=== PATIENT | female | born 1990 | race African-American/Black ===

== ENCOUNTER 2024-01-25 09:37 | Outpatient (REF) | payer OTHER, SELFPAY ==
[2024-01-25 12:26] LABS: Estimated Average Glucose 103 mg/dL; Hemoglobin A1c % 5.2 % (<6.0)
[2024-01-25 12:38] LABS: Alanine Aminotransferase 24 U/L (0-31); Albumin Level 4.1 g/dL (3.5-5.0); Alkaline Phosphatase 72 U/L (39-117); Anion Gap 9 (12-20); Aspartate Amino Transferase 22 U/L (5-31); Bilirubin Total 0.4 mg/dL (0.0-1.0); Blood Urea Nitrogen 11 mg/dL (9-16); Calcium 9.7 mg/dL (8.4-10.2); Carbon Dioxide 29 mmol/L (22-29); Chloride 104 mmol/L (96-108); Estimated Glomerular Filt Rate > 60; Glucose Random 85 mg/dL (60-115); Potassium 4.1 mmol/L (3.3-5.1); Sodium 138 mmol/L (135-145); Total Protein 7.6 g/dL (6.5-8.0)
[2024-01-25 12:42] LABS: TSH reflex Free T4 0.93 uIU/mL (0.32-4.0)
[2024-01-27 09:09] LABS: Prolactin 11.4 ng/mL
== END 2024-01-25 09:38 | disposition home or self-care (01) ==
LOC: HO.HHCL 09:37
PROVIDERS: Visit Provider Student in an Organized Health Care Education/Training Program
DX: N64.52 Nipple discharge (principal)
CPT/HCPCS: 36415; 80053; 83036; 84146; 84443

== ENCOUNTER 2024-02-15 14:17 | Outpatient (REF) | payer MEDICAID, SELFPAY ==
--- NOTE | ~2024-02-15 | MR_ITS ---
EXAMINATION: MR BREAST WITHOUT AND WITH CONTRAST, BILATERAL CLINICAL INFORMATION: No acute left nipple discharge. Breast augmentation. COMPARISON: None available. TECHNIQUE: Imaging was performed with a dedicated breast coil. Prior to the administration of contrast, bilateral axial T1 and bilateral axial T2 weighted sequences were obtained. After the uneventful administration of?10 mL of Gadavist, dynamic contrast-enhanced VIBRANT series through the breasts in the axial plane were performed. Subtracted images were performed and reviewed. A delayed sagittal sequence through both breasts was acquired. Additionally, CAD post-processing, including maximum intensity projections, 3-D reconstructions and kinetic analysis, were performed an independent workstation and reviewed by the interpreting radiologist is a portion of this exam. Silicone specific sequences not performed. FINDINGS: The breasts appear to be comprised of scattered fibroglandular elements. The tissue undergoes mild background enhancement. Bilaterally, extensive micrometallic susceptibility artifact in the periareolar region and along the inframammary fold of both breasts and at 6 o'clock suggests bilateral mastopexy in addition to bilateral breast augmentation. Significant metallic artifact is noted associated with the posterior aspect of both implants, likely related to implant valves. Clinical correlation is advised. Recommend PA and lateral chest radiograph to assess implants. LEFT BREAST: There is a subcutaneous oval 5 mm enhancing focus at 6 o'clock (series 100 image 80/111) projecting 3 cm from the nipple. On sagittal reformats this projects immediately under a line of susceptibility which I expect represents postsurgical change from mastopexy. Clinical correlation is advised. Recommend correlation with diagnostic mammography and MR directed diagnostic second look ultrasound. Fat necrosis is favored. There is a 15 mm area of skin thickening and enhancement on the left along the cleavage at 5 o'clock (series 100 image 79). There is associated susceptibility artifact and this is consistent with postoperative change. Suggest correlation with physical examination. The nipple/areolar complex is normal in appearance. No duct ectasia on T2-weighted sequence. There is an intact retropectoral implant. Again, marked susceptibility artifact posterior to the implant is likely due to the valve. Recommend correlation with chest radiography. RIGHT BREAST: No suspicious masslike or non-masslike enhancement. No abnormal skin thickening or nipple retraction. No abnormal architectural distortion. Review of the T2 weighted images demonstrates no fibrocystic changes or dilated ducts. Review of kinetic images reveals no additional findings. There is an intact retropectoral implant. Marked susceptibility artifact posterior to the implant appears related to valve. Recommend correlation with chest radiography. There is no suspicious internal mammary chain or axillary adenopathy. Limited views of the chest and abdomen are unremarkable. MR/MR breast BI wo/w con IMPRESSION: 1. A 5 mm focus of non-mass enhancement on the left at 6 o'clock, 3 cm from the nipple just under the skin. This underlies an area of susceptibility artifact likely from prior mastopexy. Fat necrosis is favored. 2. Bilateral retropectoral implants. Pronounced posterior metallic artifact. ASSESSMENT: LEFT BREAST: BI-RADS Category 4, suspicious finding. RIGHT BREAST: BI-RADS Category 2, benign finding. RECOMMENDATIONS: 1. Bilateral diagnostic mammography with left breast MR directed diagnostic second look ultrasound. 2. PA and lateral chest radiograph. Recommendation given to Maame FERRIS on 02/22/24 @ 8:52am. pt- Beatriz Li
[2024-02-15] MEDS: gadobutroL 10 ML VIAL IVPUSH (15:48)
== END 2024-02-15 14:18 | disposition home or self-care (01) ==
LOC: HO.MRI 14:17
PROVIDERS: PCP Student in an Organized Health Care Education/Training Program; Visit Provider Student in an Organized Health Care Education/Training Program
DX: N64.52 Nipple discharge (principal); N63.24 Unspecified lump in the left breast, lower inner quadrant
CPT/HCPCS: 77049; A9585

== ENCOUNTER 2024-03-07 12:50 | Outpatient (REF) | payer MEDICAID, SELFPAY ==
--- NOTE | ~2024-03-07 | US_ITS ---
EXAMINATION: MM DIAGNOSTIC DIGITAL BREAST TOMOSYNTHESIS, BILATERAL US BREAST LIMITED, LEFT CLINICAL INFORMATION: 33-year-old female, Yellowish left nipple discharge x1 year. Recent breast augmentation/implant surgery November 2022. Patient also complaining palpable focus far left breast medial inferior aspect near sternal wall. Recent MRI examination 02/15/2024, Second Look ultrasound for 2 possible abnormalities (1 representing palpable abnormality) and a 3 mm 6:00 axis left enhancing focus 3 cm from the nipple just underneath the skin, seen on that examination left breast. COMPARISON: Mammography: None. MRI breasts 02/15/2024. TECHNIQUE: Digital mammography is performed in craniocaudal and mediolateral oblique views. Digital breast tomosynthesis is performed in implant-displaced craniocaudal and implant-displaced mediolateral oblique views. Synthesized 2D images are generated from the tomosynthesis. Computer-aided detection (CAD) is performed for this exam. FINDINGS: There are scattered areas of fibroglandular density (ACR BI-RADS breast composition Category b). The implant contours are unremarkable. There are no significant masses, abnormal calcifications, or other abnormalities. The small 3 mm enhancing focus at the 6:00 axis left breast shows no suspicious abnormality on mammography. This is in a region of scarring from breast augmentation, and most likely represents scar tissue. The palpable focus in the far medial inferior left breast near the sternum is too far posteromedial to be imaged on mammography. We will investigate both these regions with ultrasound. ULTRASOUND: CLINICAL INFORMATION: As above. Evaluating palpable focus left breast far posteromedial and inferior, and evaluating small enhancing focus 6:00 axis 3 cm from the nipple, likely scar tissue. COMPARISON: None. Correlation with MRI breasts 01/26/2024. TECHNIQUE: Targeted sonographic evaluation was performed using a high frequency linear transducer. Selected archived documentation. FINDINGS: LEFT BREAST: -There is a mixture of fatty and fibroglandular tissue. No suspicious mass is seen. There is no pathologic acoustic shadowing. There is no ultrasonographic correlate to the 6:00 axis small focus of enhancement. In the region of far posteromedial palpable concern, 8:00 axis along the sternal border, there is an anechoic oval lesions that is slightly taller than wide, mildly irregular margins, good through transmission, with no internal color Doppler flow, measuring 5 x 6 x 5 mm. There is some surrounding echogenic changes to the subcutaneous fat in this region, making this most likely a region of fat necrosis. In addition this is also in the region of scarring, and is likely postsurgical in nature. US/US breast LT limited mamm only IMPRESSION: -There are no findings in either breast suspicious for malignancy. There is no implant abnormality in either breast. -Focus of enhancement on MRI LEFT breast at the 6:00 axis, 3 cm from the nipple most likely correlates to scar tissue in this region. There is no suspicious associated finding on sonography. To be cautious, 3 MONTH FOLLOW-UP left diagnostic mammogram recommended to ensure stability mammographically (standard CC and MLO implant displaced views). -Focus of palpable concern at the sternal border 8:00 axis far posteromedial also lies in a region of scarring, and is most likely a focus of evolving fat necrosis. -To be cautious, 3 MONTH FOLLOW-UP of the 8 o'clock axis abnormality, likely fat necrosis, is recommended with targeted LEFT breast ultrasound to assess for expected evolution. -Findings were discussed with the patient. OVERALL ASSESSMENT: Mammography: BI-RADS 3 - Probably benign finding(s) - 6 month follow-up suggested Ultrasound: BI-RADS 3 - Probably benign finding(s) - 6 month follow-up suggested RECOMMENDATION: 1-3 Months F/U This patient's information was entered into a reminder system with a target due date for their next mammogram.
== END 2024-03-07 12:51 | disposition home or self-care (01) ==
LOC: HO.MAMMO 12:50
PROVIDERS: PCP Student in an Organized Health Care Education/Training Program; Visit Provider Student in an Organized Health Care Education/Training Program
DX: R92.8 Other abnormal and inconclusive findings on diagnostic imaging of breast (principal)
CPT/HCPCS: 76642; 77062; 77066

== ENCOUNTER → 2024-03-07 13:30 | Outpatient (BNV) | payer MEDICAID, SELFPAY | PROVIDERS: PCP Student in an Organized Health Care Education/Training Program; Visit Provider Radiology Diagnostic Radiology | DX: N64.52 Nipple discharge (principal) | CPT/HCPCS: 76642; 77062; 77066 ==

== ENCOUNTER 2024-03-25 10:37 | Outpatient (AMB) | payer MEDICAID, SELFPAY ==
--- NOTE | 2024-03-25 10:46 | A.OFFVIS_ITS ---
Vital Signs 03/25/24 10:48 Height 5 ft 9 in Weight 215 lb BMI 31.7 BP 126/70 Blood Pressure Location Lt brachial Position Sitting Pulse 86 Intake Visit Reasons: Abnormal Breast MRI Intake Note: Patient is seen in office for evaluation and treatment of abnormal breast MRI. Pt c/o: had an MRI done due to a chest lump she could feel, was told it was scar tissue, recently had breast reconstruction in [place] and was told is scar tissue MRI:02/15/24 Voice Systems Engineer Required: No Accompanied by: Other Relationship Allergies latex Allergy (Mild, Verified 03/25/24 11:01) Itching vanilla extract flavor Allergy (Mild, Verified 03/25/24 11:01) Unknown Medication List - Last Reconciled 03/25/24 by Rodney Lubin MD No Known Home Meds HPI Comments Details: 33-year-old female patient presenting for evaluation of a left breast lump and left nipple discharge. Discharge is expressed with pressure on the nipple and seems to come from a prior nipple piercing. Discharge is described as white without blood. She is status post bilateral breast augmentation performed in [facility] in November 2022. She denies any problems with the surgery other than waking up during the procedure. Workup for the discharge with breast MRI revealed intact bilateral breast implants. Two areas of possible fat necrosis were identified in the left breast 1 at the 06:00 o'clock location and a 2nd in the 8 o'clock position. Subsequent mammogram and ultrasound confirmed a low suspicion area which was suspected to be fat necrosis. Repeat ultrasound in 3 months was recommended. She is able to palpate the lesion at the 08:00 o'clock location which is in the medial breast near the breast incision. She denies a family history of breast breast cancer. Menarche was the age of 9. She is 8 para 5. [facility] Surgical History (Updated 03/25/24 @ 11:03 by MARLEN Gonsalez) Hx of breast reconstruction (11/24/22) Hx of abdominoplasty (11/24/22) Social History Alcohol intake: current Patient Tobacco Use Status: Current everyday Tobacco user Female Reproductive History Menstrual Age of Menarche: 9 Date of last menstrual period: 03/07/24 Total pregnancies: 8 Number of Living Children: 5 Review of Systems Const All systems reviewed & are unremarkable except as noted in HPI and below Denies chills, Denies fever(s), Denies headache(s), Denies poor appetite and Denies weakness ENT Denies headache(s) Card Denies chest pain, Denies irregular heart rhythm, Denies palpitations and Denies dyspnea Resp Denies cough, Denies excessive phlegm production and Denies dyspnea GI Denies abdominal pain, Denies bloating, Denies change in bowel habits, Denies constipation, Denies heartburn, Denies diarrhea, Denies nausea and Denies vomiting Denies urinary frequency Musc Denies back pain, Denies muscle weakness and Denies numbness Skin/Breast Denies changing lesions and Denies unusual bruising Neuro Denies headache(s), Denies numbness, Denies paresthesias and Denies weakness Psych Denies anxiety and Denies depression Endo Denies palpitations Jorden/Lymph Denies lymphadenopathy Physical Exam Vital Signs: Last Vital Signs Pulse 86 03/25/24 10:48 BP 126/70 03/25/24 10:48 BMI result Body Mass Index 31.7 Const General: cooperative and no acute distress Nutritional Appearance: well nourished Orientation/consciousness: patient oriented x3 Limitations: no limitations HEENT Head: Yes normocephalic and Yes atraumatic Ears: hearing grossly normal bilaterally Chest Other: Bilateral mammo pexy and augmentation incisions are clean and intact. There are palpable nodules along the incision bilaterally suggestive of underlying sutures. Implant are intact. No evidence of infection. Left breast: No skin change, no nipple retraction, no nipple discharge, nipple piercing without evidence of underlying abscess, palpable mass suggestive of u nderlying scar tissue or fat necrosis, no suspicious palpable mass, no enlarged lymph nodes. Right breast: No skin change, no nipple retraction, no nipple discharge, no palpable mass, no enlarged lymph nodes Resp Effort & Inspection: normal respiratory effort, no audible wheezes, no cough and no respiratory distress Cardio Jugular venous distension: no JVD GI Inspection: Yes normal to inspection Skin Other: Warm, dry, no rash Neuro General: patient oriented x3 Extrem General: Yes no clubbing, cyanosis or edema Assessment & Plan Assessment & Plan (1) Abnormal ultrasound of breast: Code(s): R92.8 - Other abnormal and inconclusive findings on diagnostic imaging of breast Category: Medical Plan 33-year-old female patient with a recent history of nipple discharge from her nipple piercing in the left breast found to have a palpable mass in the 8 o'clock position confirmed by MRI along with a 06:00 o'clock lesion felt to possibly be fat necrosis. This was confirmed on mammogram/ultrasound of 03/07/2024. Examination today revealed no suspicious findings in either breast with well-healed incisions in the bilateral breasts from mammo pexy and breast augmentation. I recommended a follow-up ultrasound in 3 months with follow-up examination after the ultrasound. She expressed understanding and agrees with the plan. The nipple discharge does not appear to be spontaneous and rather is coming from the nipple piercing. No surgical intervention is required for this finding. Orders: Orders US breast LT limited 06/07/24 R92.8 - Other abnormal and inconclusive findings on diagnostic imaging of breast Coding Level of Care Code New Pt Level 4 (51787) Diagnoses Abnormal ultrasound of breast R92.8
[2024-03-25 10:48] VITALS: BP 126/70; PULSE 86; BMI 31.7
== END 2024-03-25 11:01 | disposition home or self-care (01) ==
PROVIDERS: PCP Student in an Organized Health Care Education/Training Program; Referring Provider Student in an Organized Health Care Education/Training Program; Visit Provider Surgery
DX: R92.8 Other abnormal and inconclusive findings on diagnostic imaging of breast (principal)
CPT/HCPCS: 99203

== ENCOUNTER → 2024-03-25 10:37 | Outpatient (BNVA) | payer MEDICAID, SELFPAY | PROVIDERS: PCP Student in an Organized Health Care Education/Training Program; Referring Provider Student in an Organized Health Care Education/Training Program; Visit Provider Surgery | DX: R92.8 Other abnormal and inconclusive findings on diagnostic imaging of breast (principal) | CPT/HCPCS: 99202 ==

== ENCOUNTER 2024-04-11 12:19 | Outpatient (REF) | payer MEDICAID, SELFPAY ==
[2024-04-11 13:16] LABS: MANUAL DIFF FLAG NO
[2024-04-11 13:28] LABS: Basophils Absolute Auto 0.1 X10*3/uL (0.0-0.2); Basophils Percent Auto 0.7 % (0-2); Eosinophils Absolute Auto 0.1 X10*3/uL (0.0-0.4); Hematocrit 41.4 % (37.0-47.0); Hemoglobin 13.4 g/dl (12.0-16.0); Imm Gran Abs Auto 0.01 X10*3/uL (0.00-0.03); Imm Gran Pct Auto 0.1 % (0.0-0.4); Lymphocytes Absolute Auto 3.4 X10*3/uL (1.2-4.9); Lymphocytes Percent Auto 50.3 % (20-40); Mean Corpuscular HGB Conc 32.4 g/dl (31.0-35.0); Mean Corpuscular Hemoglobin 27.8 pg (27.0-33.0); Mean Corpuscular Volume 85.9 fL (80.0-98.0); Mean Platelet Volume 9.7 fL (9.4-12.3); Monocytes Absolute Auto 0.7 X10*3/uL (0.1-1.2); Monocytes Percent Auto 9.8 % (2-11); Neutrophils Absolute Auto 2.5 x10*3/uL (2.0-8.3); Neutrophils Percent Auto 37.1 % (45-73); Platelet Count 376 X10*3/uL (160-400); Red Blood Count 4.82 X10*6/uL (4.20-5.50); Red Cell Distribution Width 13.2 % (11.0-16.0); White Blood Count 6.8 X10*3/uL (4.8-10.8)
[2024-04-11 13:50] LABS: Cholesterol 139 mg/dL (<200); HDL Cholesterol 57 mg/dL (>40); Iron 107 mcg/dL (30-160); LDL Cholesterol Calculated 68 mg/dL (<100); Percent Iron Saturation 31 % (15-50); Total Iron Binding Capacity 340 mcg/dL (228-428); Triglycerides 70 mg/dL (<150); Unsaturated Iron Binding 233 ug/dL
[2024-04-11 14:09] LABS: Ferritin 12 ng/mL (10-122)
[2024-04-11 14:46] LABS: Reflex LDLD? No
== END 2024-04-11 12:20 | disposition home or self-care (01) ==
LOC: HO.HHCL 12:19
PROVIDERS: Visit Provider Internal Medicine
DX: E61.1 Iron deficiency (principal); N64.3 Galactorrhea not associated with childbirth
CPT/HCPCS: 36415; 80061; 82728; 83540; 85025

== ENCOUNTER 2024-04-13 08:14 | Outpatient (REF) | payer MEDICAID, SELFPAY ==
[2024-04-13 12:42] LABS: HBS Num1 212.43 mIU/mL (0-7.99); HBc Num1 0.14 S/CO (0.00-0.79); Hepatitis A Antibody IgM 0.16 Index (0-0.79); Hepatitis B Core Antibody Nonreactive (Nonreactive); Hepatitis B Surface Antigen Negative (Negative); ~HepC Num1 0.11 S/CO (0.00-0.79); ~Hepatitis A Antibody IgM Nonreactive (Nonreactive); ~Hepatitis B Surface Antibody REACTIVE (Nonreactive); ~Hepatitis C Antibody Nonreactive (Nonreactive)
== END 2024-04-13 08:15 | disposition home or self-care (01) ==
LOC: HO.HHCL 08:14
PROVIDERS: Visit Provider Internal Medicine
DX: Z00.00 Encounter for general adult medical examination without abnormal findings (principal)
CPT/HCPCS: 36415; 86704; 86706; 86709; 86803; 87340

== ENCOUNTER 2025-06-15 10:46 | Outpatient (REF) | payer SELFPAY ==
--- NOTE | ~2025-06-15 | XR_ITS ---
EXAMINATION: XR CHEST CLINICAL INFORMATION: pleuritic CP COMPARISON: None available. TECHNIQUE: PA and lateral views FINDINGS: No consolidation, pleural effusion or pneumothorax. Cardiomediastinal silhouette size is normal. Mild S-shaped curvature of the thoracolumbar spine. Bilateral breast implants. XR/XR chest 2V IMPRESSION: No acute airspace disease. Mild scoliosis, thoracolumbar spine. Electronically signed by: Winston Blanton MD 06/15/2025 11:01 AM EDT
== END 2025-06-15 10:47 | disposition home or self-care (01) ==
LOC: HO.HHCX 10:46
PROVIDERS: PCP Internal Medicine; Visit Provider Internal Medicine
DX: R07.89 Other chest pain (principal)
CPT/HCPCS: 71046

== ENCOUNTER → 2025-06-15 10:50 | Outpatient (BNV) | payer SELFPAY | PROVIDERS: PCP Internal Medicine; Visit Provider Radiology Diagnostic Radiology | DX: R07.81 Pleurodynia (principal); M41.35 Thoracogenic scoliosis, thoracolumbar region | CPT/HCPCS: 71046 ==

== ENCOUNTER 2025-08-07 09:21 | Outpatient (REF) | payer MEDICAID, SELFPAY ==
[2025-08-07 11:34] LABS: Anion Gap 9 (12-20); Blood Urea Nitrogen 8 mg/dL (9-16); Calcium 9.4 mg/dL (8.4-10.2); Carbon Dioxide 27 mmol/L (22-29); Chloride 108 mmol/L (96-108); Estimated Glomerular Filt Rate > 60; Potassium 3.8 mmol/L (3.3-5.1); Sodium 140 mmol/L (135-145)
[2025-08-07 11:56] LABS: Appearance Urine Cloudy; Glucose Urine UA Negative (Negative); PH 5.5 (5.0-9.0); Specific Gravity - Urine 1.015 (1.005-1.025); UMIC TRIGGER UACC YES
== END 2025-08-07 09:22 | disposition home or self-care (01) ==
LOC: HO.HHCL 09:21
PROVIDERS: PCP Internal Medicine; Visit Provider Internal Medicine
DX: R07.89 Other chest pain (principal); E66.811 Obesity, class 1; Z68.34 Body mass index [BMI] 34.0-34.9, adult
CPT/HCPCS: 36415; 80048; 81001; 83036

== ENCOUNTER 2025-08-08 08:50 | Outpatient (REF) | payer MEDICAID, SELFPAY ==
--- OUTSIDE RECORDS SUMMARY | 2025-08-07 15:20 | XMS_ITS | Encounter Summary ---
Author Organization [employer] Address [address] [place] [address] [address] [place] [address] Care Team Providers Care Summer Camp Counselor Name Role Phone Whitney Ward MD Primary Care Provider + Reason for Referral * Imaging (STAT) - Authorized Specialty Diagnoses / Procedures Referred By Contac t Referred To Contact Cardiology Diagnoses Localized swelling of right lower leg Procedures VASC US Lower Extremity Venous Duplex Right Jeremías Kimble MD [address] [place] [address] Phone: tel: fax: [facility] [address] [place] [address] Phone: tel: fax: Referral ID Status Reason Start Date Expiration Date Visits Requested Visits Authorized [id number] Authorized Perform Procedure 5 08/07/2026 1 1 Reason for Visit * Reason Comments Foot Pain Encounter Details Date Type Department Care Team (Late st Contact Info) Description 08/07/2025 3:20 PM EST Office Visit [facility] [address] [place] [address] Jeremías Kimble MD [address] [place], [place] [phone] Localized swelling of right lower leg (Primary Dx) Social History Tobacco Use Types Packs/Day Years Used Date Smoking Tobacco: Some Days Cigarettes Smokeless Tobacco: Never Tobacco Cessation:Ready to Q uit: Not Asked; Counseling Given: Not Answered Alcohol Use Standard Drinks/Week Comments Not Currently 2 (1 standard drink = 0.6 oz pure alcohol) Currently drinks wine every other day Alcohol Answer Date Recorded How often do you have a drink containing alcohol ? 1 06/15/2025 How many drinks containing a lcohol do you have on a typical day when you are drinking? 0 06/15/2025 How often do you have six or more drinks on one occasion? 0 06/15/2025 Depression Answer Date Recorded Patient Health Questionnaire-9 Score 19 06/26/2025 Patient Health Questionnaire-9 Score 19 06/26/2025 Last PHQ-9: Questionnaire Data Not on file 1 08/26/2024 Housing Stability Answer Date Recorded What is your housing situation today? I have liliana gary 01/22/[address] you li ve. Do you have problems with any of the following? None of the above 01/22/2024 Food Insecurity Answer Date Recorded Within the past 12 months, y ou worried that your food would run out before you got money to buy more: Never True 01/22/2024 Within the past 12 months,th e food you bought just didn't last and you didn't have enough money to get more: Never True Transportation Answer Date Recorded In the past 12 months, has l ack of transportation kept you from medical appts, meetings, work or from getting things needed for daily living? No 01/22/2024 Utilities Answer Date Recorded In the past 12 months, has t he electric, gas, oil or water company threatened to shut off services in your home? No 01/22/2024 Depression Answer Date Recorded Patient Health Questionnaire-2 Score 6 06/26/2025 Comments No Sex and Gender Information Value Date Recorded Sex Assigned at Female 01/22/2024 8:45 AM EDT Legal Sex Female 1:50 PM EDT Gender Identity Female 01/22/2024 8:45 AM EDT Sexual Orientation Straight 01/22/2024 8: 45 AM EDT documented as of this encounter Last Filed Vital Signs Vital Sign Reading Time Taken Comments Blood Pressure 125/85 08/07/2025 3:04 PM EST Pulse 68 08/07/2025 3:04 PM EST Temperature 36.7 C (98.1 F) 08/07/2025 3:04 PM EST Respiratory Rate 18 08/07/2025 3:04 PM EST Oxygen Saturation 96% 08/07/2025 3:04 PM EST Inhaled Oxygen Concentration - - Weight 108 kg (237 lb 9.6 oz) 08/07/2025 3:04 PM EST Height 175.3 cm (5' 9 ) 08/07/2025 3:04 PM EST Body Mass Index 35.09 08/07/2025 3:04 PM EST documented in this encounter Progress Notes * Jeremías Kimble MD - 08/07/2025 3:20 PM EST SUBJECTIVE Latisha Li is a 34 y.o. female who presents for Foot Pain. HPI Latisha Li, 34-year-old female - Onset of pain in the frontal aspect of the right lower extremity two days ago, worsened with walking and hanging the leg down - Reports swelling in the same area, with pain radiating upwards - Describes tenderness and increased discomfort with palpation and movement - Denies use of ibuprofen or other medications for current symptoms Problem List[1] Allergies[2] Medications Ordered Prior to Encounter[3] Review of Systems Constitutional: Negative for appetite change, chills and diaphoresis. Eyes: Negative for photophobia, pain and redness. Respiratory: Negative for cough, shortness of breath and stridor. Cardiovascular: Positive for leg swelling. Gastrointestinal: Negative for anal bleeding and blood in stool. Skin: Negative for rash. OBJECTIVE Vitals: 08/07/25 1504 BP: 125/85 BP Location: Right arm Patient Position: Sitting BP Cuff Size: Large adult Pulse: 68 Resp: 18 Temp: 98.1 ??F (36.7 ??C) TempSrc: Oral SpO2: 96% Weight: 237 lb 9.6 oz (108 kg) Height: 5' 9 (1.753 m) Physical Exam Constitutional: General: She is not in acute distress. Appearance: Normal appearance. She is obese. She is not ill-appearing, toxic- appearing or diaphoretic. Pulmonary: Effort: Pulmonary effort is normal. Abdominal: Palpations: Abdomen is soft. Skin: Comments: Swelling and erythema of the right lower limb Tenderness of the sole of the right foot Neurological: Mental Status: She is alert. Assessment/Plan Assessment/Plan Diagnoses and all orders for this visit: Localized swelling of right lower leg - CBC auto differential; Future - Sed Rate by Modified Westergren; Future - ibuprofen 600 MG tablet; Take 1 tablet (600 mg) by mouth every 8 (eight) hours if needed for mildpain. - VASC US Lower Extremity Venous Duplex Right; Future Right lower extremity pain and swelling: - Differential diagnosis includes deep vein thrombosis, cellulitis, and possible fasciitis. - Ordered blood tests and ultrasound of the affected area. Prescribed ibuprofen for pain management. This note was drafted using Ambient ([employer]) technology. The patient/patient's guardian has been informed and has consented to the use of this technology: Yes [1] Patient Active Problem List Diagnosis Alcoholism (CMS/HCC) (HCC) Depression Breast lump Elevated blood pressure reading Galactorrhea Anxiety Iron deficiency Marital problems Encounter for preventive health examination Acute otitis media Class 1 obesity due to excess calories without serious comorbidity with body mass index (BMI) of 34.0 to 34.9 in adult Other chest pain Marijuana use [2] Allergies Allergen Reactions Banana Itching Latex Itching [3] Current Outpatient Medications on File Prior to Visit Medication Sig Dispense Refill traZODone (Desyrel) 50 MG tablet 1-2 tablets PO at bedtime prn insomnia 60 tablet 0 No current facility-administered medications on file prior to visit. documented in this encounter Plan of Treatment Upcoming Encounters Date Type Department Care Team (Late st Contact Info) Description 09/15/2025 9:45 AM EST Office Visit [facility] MEDICINE [address] [place] [address] Whitney Ward MD [address] [place] [address] 10/27/2025 10:00 AM EST Office Visit [facility] OPTOMETRY [address] [place], [place] [phone] Luann Griffin, OD [address] [place] [address] Scheduled Orders Name Type Priority Associated Diagnoses Orde r Schedule CBC auto differential Lab Routine Localized swelling of right lower leg Expected: 08/07/2025 (Approximate), Expires: 08/07/2026 Sed Rate by Modified Westergren Lab Routine Localized swelling of right lower leg Expected: 08/07/2025, Expires: 08/07/2026 documented as of this encounter Visit Diagnoses Diagnosis Localized swelling of right lower leg- Primary documented in this encounter Additional Health Concerns Assessment Noted Time PHQ-9 Depression Total Score: 19 025 11:05 AM EST documented as of this encounter Care Teams Summer Camp Counselor Relationship Specialty Start Date End Date Whitney Ward MD [address] [place] [address] PCP - General Internal Medicine 04/11/24 documented as of this encounter
--- NOTE | ~2025-08-08 | US_ITS ---
EXAMINATION: US TRIPLEX LOWER EXTREMITY, RIGHT CLINICAL INFORMATION: Right lower extremity localized swelling, acute onset. COMPARISON: None available. TECHNIQUE: Color-flow triplex imaging with spectral analysis and compression Doppler were performed on the right lower extremity. FINDINGS: As per technologist note, limited examination due to patient habitus. Suboptimal views of the right distal femoral vein as well as the peroneal veins. Respiratory variation, normal compression and augmented flow are noted throughout the right lower extremity. The visualized common femoral vein, superficial femoral vein, profunda femoral vein, popliteal vein and midcalf posterior tibial venous segments show no evidence of deep venous thrombosis. There is no Howell's cyst. US/US venous duplex LE RT IMPRESSION: No evidence of deep venous thrombosis involving the right lower extremity. Electronically signed by: Paul Lynn MD 08/08/2025 09:43 AM KEILY
--- OUTSIDE RECORDS SUMMARY | 2025-08-08 09:40 | XMS_ITS | Encounter Summary ---
Author Organization [employer] Address [address] [place] [address] Care Team Providers Care Certified Pharmacist Assistant Name Role Phone Whitney Ward MD Primary Care Provider + Encounter Details Date Type Department Care Team (Latest Contact Info) Description 08/07/2025 Travel Social History Tobacco Use Types Packs/Day Years Used Date Smoking Tobacco: Some Days Cigarettes Smokeless Tobacco: Never Alcohol Use Standard Drinks/Week Comments Not Currently [...] AM EDT documented as of this encounter Plan of Treatment Upcoming Encounters Date Type Department Care Team (Late st Contact Info) Description 09/15/2025 9:45 AM EST Office Visit [facility] MEDICINE [address] [place] [address] Whitney Ward MD [address] [place] [address] 10/27/2025 10:00 AM EST Office Visit [facility] OPTOMETRY [address] [place] [address] Luann Griffin, OD [address] [place] [address] documented as of this encounter Visit Diagnoses Not on filedocumented in this encounter Additional Health Concerns Assessment Noted Time PHQ-9 Depression Total Score: 19 025 11:05 AM EST documented as of this encounter Care Teams Certified Pharmacist Assistant Relationship Specialty Start Date End Date Whitney Ward MD [address] [place] [address] [phone] PCP - General Internal Medicine 04/11/24 documented as of this encounter
--- OUTSIDE RECORDS SUMMARY | 2025-08-08 09:41 | XMS_ITS | Clinical Summary ---
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 traZODone (Desyrel) 50 MG tablet 1-2 tablets PO at bedtime prn insomnia 60 tablet 06/28/2025 Active ibuprofen 600 MG tabletIndicatio ns:Localized swelling of right lower leg Take 1 tablet (600 mg) by mouth every 8 (eight) hours if needed for mild pain. 20 tablet 08/07/2025 09/06/19 26 Active Active Problems Problem Noted Date Diagnosed Date Marijuana use 06/29/2025 Class 1 obesity due to exces s calories without serious comorbidity with body mass index (BMI) of 34.0 to 34.9 in adult 06/15/2025 Assessment & Plan (06/15/2025 1:55 PM EDT): She gained few pounds since last visit. I discussed re weight reduction options including exercise, life style modifications, diet. Recommended to decrease soda and sugary beverage consumption, increase protein intake with meals (at least 1 portion of protein with each meal) to assist with satiety, increase dietary fiber Recommended at least 150 min/week of moderate intensity exercise. Ordered labs and follow-up with me at next appointment Other chest pain 06/15/2025 Assessment & Plan (06/15/2025 1:54 PM EDT): Unclear if related to relatively recent breast surgery Other CXR, it does not seem to be cardiac or pulmonary related Acute otitis media 12/30/2024 Encounter for preventive health examination 08/2023 Assessment & Plan (06/15/2025 2:02 PM EDT): Discussed with patient re increase fresh fruit and vegetable intake. Counseled re moderate exercise as tolerated, up to 20min/d Patient feels safe at home. PAP smear: UTD, next one due 2027 Eye exam: Overdue, agreed to referral for routine ophthalmology evaluation Lipids/FBS: up to date, next ones due on 2028 Vaccinations: Patient declined influenza, PCV and COVID immunization, other adult immunizations are up-to-date Dental visit: Overdue, advised to schedule an appointment with the dentist Assessment & Plan (05/24/2024 10:21 AM EDT): See HPI Marital problems 04/12/2024 Assessment & Plan (04/18/2024 9:34 AM EDT): During IBH Consult Beatrizann presenting with excessive worry/anxiety, difficulty controlling worry, anxiety/worry associated to easily fatigued , difficulty concentrating and/or mind going blank , and irritability, and sense of dread ; for a period of 18+ mo, for most or all symptoms in the context of family issues, employment concern, and marriage. Patient carries a diagnosis for Alcohol Use Disorder. Explored and discussed OBAT groups with the patient; she states at this time is not ready to engage in the groups yet. Complicated relationship with her identified as main trigger for increase of anxiety. Pt was referred to [facility] for OP services on 02/16/24. I printed out the letter and recommended patient to reach out to agency requesting referral status and/or intake appointment. Pt was engaged with active listening, validation of emotions and open-ended questions. Explored triggers associated with symptoms and assessed for risk and social supports. Pt will continue with plan for MH services and request to speak with clinician during next medical appointment if needed. Iron deficiency 04/11/2024 Assessment & Plan (06/15/2025 1:56 PM EDT): Previously related to postop. Order labs, she is off iron supplementation Assessment & Plan (04/11/2024 6:09 PM EDT): Order labs Alcoholism (CMS/HCC) 01/22/2024 Assessment & Plan (04/11/2024 6:11 PM EDT): Not ready for OBAT at this time, she will fu with counselor. I will ask out counselor to fu closely with her. I will fu at next appt and continue to support OBAT evaluation when ready. Assessment & Plan (02/16/2024 11:48 AM EDT): During IBH Consult Latisha presenting with depressed mood, loss of interests/pleasure , change in appetite or weight overeating, psychomotor retardation, trouble concentrating, thoughts of worthlessness or guilt, hopelessness, difficulty concentrating and excessive worry/anxiety, difficulty controlling worry, restless/keyed up/On edge, difficulty concentrating/Mind going blank , irritability, and sleep disturbance difficulty falling asleep and using in larger amounts or for longer than intended, unsuccessful attempt/s to cut down/stop use, cravings and urges to use, recurrent use resulting in failure to fulfill major obligations at work/home/school , continued use, even when it causes interpersonal problems, giving up/reducing important social, occupational, or recreational activities because of use, continued use despite physical or psychological problem (potentially related or made worse by use); for a period of 18+ mo, for all symptoms in the context of family issues and relationship issues. Latisha has alcohol use disorder; alcohol misuse increasing due to experiencing multiple personal stressors. Anxiety has also increased. Complicated relationship with her identified as main trigger. She was able to connect with Obat at [facility], has appointment schedule with Dr. Rosales for 02/18. Latisha had BH services in the past with [facility] but lost care. Pt was referred to [facility] for OP services. Pt was engaged with active listening, validation of emotions and open-ended questions. Explored triggers associated with symptoms and assessed for risk and social supports. Pt will continue with plan for MH services and request to speak with clinician during next medical appointment if needed. PLAN: (check all that apply) Continue with current services (defined as services in the past 12 months) Behavioral Health Integration Plan Internal Follow up with [facility] Patient Self Plan Patient to utilize skills provided in intervention , Patient to reach out to [facility] team as needed, Patient to reach out to [facility] as needed, and Patient to follow-up with external team. Pt referred to [facility] . clinician will see pt during her next medical appointment on March per patient's request. Assessment & Plan (01/28/2024 11:53 AM EDT): During IB Consult Latisha presenting with depressed mood, loss of interests/pleasure , change in appetite or weight overeating, psychomotor retardation, trouble concentrating, thoughts of worthlessness or guilt, fatigue/loss of energy, inappropriate guilt , hopelessness, difficulty concentrating, excessive worry/anxiety, difficulty controlling worry, restless/keyed up/On edge, difficulty concentrating/Mind going blank , irritability, and sleep disturbance difficulty falling asleep, and using in larger amounts or for longer than intended, unsuccessful attempt/s to cut down/stop use, cravings and urges to use, recurrent use resulting in failure to fulfill major obligations at work/home/school , continued use, even when it causes interpersonal problems, giving up/reducing important social, occupational, or recreational activities because of use, continued use despite physical or psychological problem (potentially related or made worse by use) ; for a period of 18+ mo, for all symptoms in the context of family issues and relationship issues. Latisha reported struggling with alcohol abuse due to experiencing multiple personal stressors. Anxiety has also increased; unaware of importance of grounding techniques. Complicated relationship with her identified as main trigger. PLAN: (check all that apply) New/Additional Services needed PCP management On-site non-integrated services Off-site services for Behavioral Health Integration Plan Internal Warm handoff OBAT External OP therapy referral Patient Self Plan Patient to utilize skills provided in intervention , Patient to reach out to [facility] team as needed, Comply with medication , Patient to engage in OP therapy , and Patient to reach out to [facility] as needed. Connected with OBAT (appt scheduled for 02/[address] Connie F. Pt aggred to be referred to [facility] for sooner appointments. Assessment & Plan (01/22/2024 9:08 PM EDT): alcohol : drinking -hard liquor 1 pint a day -started 8 months ago ,last drink yesterday ,denies withdrawal symptoms pt w alcoholism since last year -gave info to pt to go today CR[facility] and refer to OBAT program-pt interested in start program -denies withdrawal symptoms -discusse alarm signs and symptoms Depression 01/22/2024 Assessment & Plan (06/15/2025 1:57 PM EDT): Fell out of care due to insurance issues. We discussed about coping mechanism with depression and anxiety, especially now with recent divorce and economic strain. She agreed to referral to our team, declined medications at this time. We discussed about cutting down on THC use, advised to reach out to ip litigation paralegal to help her file for child support. She feels safe at home and is able to reach out for safety Assessment & Plan (04/11/2024 6:15 PM EDT): Needs to engage in therapy, she feels safe and has HC number to reach out for appt. We discussed re cut down on ETOH<, THC use. Not ready to start new meds yet. I will order labs and fu in 6-8w to start meds. She feels safe at home Assessment & Plan (02/16/2024 11:49 AM EDT): During IBH Consult Latisha presenting with depressed mood, loss of interests/pleasure , change in appetite or weight overeating, psychomotor retardation, trouble concentrating, thoughts of worthlessness or guilt, hopelessness, difficulty concentrating and excessive worry/anxiety, difficulty controlling worry, restless/keyed up/On edge, difficulty concentrating/Mind going blank , irritability, and sleep disturbance difficulty falling asleep and using in larger amounts or for longer than intended, unsuccessful attempt/s to cut down/stop use, cravings and urges to use, recurrent use resulting in failure to fulfill major obligations at work/home/school , continued use, even when it causes interpersonal problems, giving up/reducing important social, occupational, or recreational activities because of use, continued use despite physical or psychological problem (potentially related or made worse by use); for a period of 18+ mo, for all symptoms in the context of family issues and relationship issues. Latisha has alcohol use disorder; alcohol misuse increasing due to experiencing multiple personal stressors. Anxiety has also increased. Complicated relationship with her identified as main trigger. She was able to connect with Obat at [facility], has appointment schedule with Dr. Rosales for 02/18. Latisha had services in the past with [facility] but lost care. Pt was referred to [facility] for OP services. Pt was engaged with active listening, validation of emotions and open-ended questions. Explored triggers associated with symptoms and assessed for risk and social supports. Pt will continue with plan for services and request to speak with clinician during next medical appointment if needed. PLAN: (check all that apply) Continue with current services (defined as services in the past 12 months) Behavioral Health Integration Plan Internal Follow up with [facility] Patient Self Plan Patient to utilize skills provided in intervention , Patient to reach out to [facility] team as needed, Patient to reach out to [facility] as needed, and Patient to follow-up with external team. Pt referred to [facility] . clinician will see pt during her next medical appointment on March per patient's request. Assessment & Plan (01/28/2024 11:53 AM EDT): During IBH Consult Latisha presenting with depressed mood, loss of interests/pleasure , change in appetite or weight overeating, psychomotor retardation, trouble concentrating, thoughts of worthlessness or guilt, fatigue/loss of energy, inappropriate guilt , hopelessness, difficulty concentrating, excessive worry/anxiety, difficulty controlling worry, restless/keyed up/On edge, difficulty concentrating/Mind going blank , irritability, and sleep disturbance difficulty falling asleep, and using in larger amounts or for longer than intended, unsuccessful attempt/s to cut down/stop use, cravings and urges to use, recurrent use resulting in failure to fulfill major obligations at work/home/school , continued use, even when it causes interpersonal problems, giving up/reducing important social, occupational, or recreational activities because of use, continued use despite physical or psychological problem (potentially related or made worse by use) ; for a period of 18+ mo, for all symptoms in the context of family issues and relationship issues. Latisha reported struggling with alcohol abuse due to experiencing multiple personal stressors. Anxiety has also increased; unaware of importance of grounding techniques. Complicated relationship with her identified as main trigger. PLAN: (check all that apply) New/Additional Services needed PCP management On-site non-integrated services Off-site services for Behavioral Health Integration Plan Internal Warm handoff OBAT External OP therapy referral Patient Self Plan Patient to utilize skills provided in intervention , Patient to reach out to [facility] team as needed, Comply with medication , Patient to engage in OP therapy , and Patient to reach out to [facility] as needed. Connected with OBAT (appt scheduled for 02/[address] Connie Horner Pt aggred to be referred to [facility] for sooner appointments. Assessment & Plan (01/22/2024 9:09 PM EDT): Hx of depression ,denies SI -BH today to ernst pt in office Breast lump 01/22/2024 Assessment & Plan (06/15/2025 1:55 PM EDT): On left breast, she never had follow-up studies on July 2024. Order left diagnostic mammo plus ultrasound and follow-up with me, may need a referral to breast surgery Assessment & Plan (04/11/2024 6:14 PM EDT): It seems to be benign, she has fu appt with breast surgeon on Jul Assessment & Plan (01/22/2024 9:09 PM EDT): -no signs of infection in breast -possible galactorrhea? -MRI breast order today given breast implants hx that will be better to evaluate masses or implant rupture--if denied will do dx MM bl and US -check today prolactin,TSH,chem,hb1AC -warm compresses and tylenol prn advised Elevated blood pressure reading 01/22/2024 Assessment & Plan (01/22/2024 9:10 PM EDT): Elevated BP -borderline BP to monitor w PCP at upcoming apt Galactorrhea 01/22/2024 Assessment & Plan (04/11/2024 6:14 PM EDT): FU with breast surgeon, labs are normal. It could be related to THC Anxiety 01/22/2024 Assessment & Plan (04/18/2024 9:34 AM EDT): During IBH Consult Latisha presenting with excessive worry/anxiety, difficulty controlling worry, anxiety/worry associated to easily fatigued , difficulty concentrating and/or mind going blank , and irritability, and sense of dread ; for a period of 18+ mo, for most or all symptoms in the context of family issues, employment concern, and marriage. Patient carries a diagnosis for Alcohol Use Disorder. Explored and discussed OBAT groups with the patient; she states at this time is not ready to engage in the groups yet. Complicated relationship with her identified as main trigger for increase of anxiety. Pt was referred to [facility] for OP services on 02/16/24. I printed out the letter and recommended patient to reach out to agency requesting referral status and/or intake appointment. Pt was engaged with active listening, validation of emotions and open-ended questions. Explored triggers associated with symptoms and assessed for risk and social supports. Pt will continue with plan for MH services and request to speak with clinician during next medical appointment if needed. Assessment & Plan (02/16/2024 11:49 AM EDT): During IBH Consult Latisha presenting with depressed mood, loss of interests/pleasure , change in appetite or weight overeating, psychomotor retardation, trouble concentrating, thoughts of worthlessness or guilt, hopelessness, difficulty concentrating and excessive worry/anxiety, difficulty controlling worry, restless/keyed up/On edge, difficulty concentrating/Mind going blank , irritability, and sleep disturbance difficulty falling asleep and using in larger amounts or for longer than intended, unsuccessful attempt/s to cut down/stop use, cravings and urges to use, recurrent use resulting in failure to fulfill major obligations at work/home/school , continued use, even when it causes interpersonal problems, giving up/reducing important social, occupational, or recreational activities because of use, continued use despite physical or psychological problem (potentially related or made worse by use); for a period of 18+ mo, for all symptoms in the context of family issues and relationship issues. Latisha has alcohol use disorder; alcohol misuse increasing due to experiencing multiple personal stressors. Anxiety has also increased. Complicated relationship with her identified as main trigger. She was able to connect with Obat at [facility], has appointment schedule with Dr. Rosales for 02/18. Latisha had services in the past with [facility] but lost care. Pt was referred to [facility] for OP services. Pt was engaged with active listening, validation of emotions and open-ended questions. Explored triggers associated with symptoms and assessed for risk and social supports. Pt will continue with plan for services and request to speak with clinician during next medical appointment if needed. PLAN: (check all that apply) Continue with current services (defined as services in the past 12 months) Behavioral Health Integration Plan Internal Follow up with [facility] Patient Self Plan Patient to utilize skills provided in intervention , Patient to reach out to [facility] team as needed, Patient to reach out to [facility] as needed, and Patient to follow-up with external team. Pt referred to [facility] . clinician will see pt during her next medical appointment on March per patient's request. Assessment & Plan (01/28/2024 11:53 AM EDT): During IBH Consult Latisha presenting with depressed mood, loss of interests/pleasure , change in appetite or weight overeating, psychomotor retardation, trouble concentrating, thoughts of worthlessness or guilt, fatigue/loss of energy, inappropriate guilt , hopelessness, difficulty concentrating, excessive worry/anxiety, difficulty controlling worry, restless/keyed up/On edge, difficulty concentrating/Mind going blank , irritability, and sleep disturbance difficulty falling asleep, and using in larger amounts or for longer than intended, unsuccessful attempt/s to cut down/stop use, cravings and urges to use, recurrent use resulting in failure to fulfill major obligations at work/home/school , continued use, even when it causes interpersonal problems, giving up/reducing important social, occupational, or recreational activities because of use, continued use despite physical or psychological problem (potentially related or made worse by use) ; for a period of 18+ mo, for all symptoms in the context of family issues and relationship issues. Latisha reported struggling with alcohol abuse due to experiencing multiple personal stressors. Anxiety has also increased; unaware of importance of grounding techniques. Complicated relationship with her identified as main trigger. PLAN: (check all that apply) New/Additional Services needed PCP management On-site non-integrated services Off-site services for Behavioral Health Integration Plan Internal Warm handoff OBAT External OP therapy referral Patient Self Plan Patient to utilize skills provided in intervention , Patient to reach out to [facility] team as needed, Comply with medication , Patient to engage in OP therapy , and Patient to reach out to [facility] as needed. Connected with OBAT (appt scheduled for 02/[address] Connie Horner Pt aggred to be referred to [facility] for sooner appointments. Encounters * This document contains information received from the source organization and may not represent a complete record from that organization. Date Type Department Care Team Description 08/07/2025 3:20 PM EST Office Visit [facility] [address] [place] [id number] Jeremías Kimble MD Localized swelling of right lower leg (Primary Dx) 08/07/2025 Travel 07/26/2025 Population Health Risk Score [facility] () Department [address] [phone] Provider, Population Health Generic 06/26/2025 Telephone [facility] [address] [place] [phone] Whitney Ward MD Telephone Call 06/16/2025 Telephone [facility] [address] [place] [phone] Whitney Ward MD Update Diagnostic Order 06/15/2025 9:45 AM EDT Office Visit [facility] [address] [place] [id number] Whitney Ward MD Encounter for preventive health examination (Primary Dx); Iron deficiency; Severe episode of recurrent major depressive disorder, without psychotic features (CMS/HCC) (HCC); Mass of left breast, unspecified quadrant; Class 1 obesity due to excess calories without serious comorbidity with body mass index (BMI) of 34.0 to 34.9 in adult; Other chest pain; Exercise counseling; Routine eye exam; Dietary counseling 06/15/2025 Travel 06/14/2025 Telephone [facility] [address] [place] [address] Whitney Ward MD CHART PREP 06/07/2025 Patient Outreach [facility] [address] [place] [address] Whitney Ward MD Pre-visit Planning (Pre-visit planning - LVM ) from Last 3 Months Immunizations Immunization Administration Dates Next Due Influenza injectable quadrivalent preservative f ree 06/16/2023 Tdap 04/12/2024 Social History Tobacco Use Types Packs/Day Years [...] is your housing situation today? I have lilianasuyapa gary 01/22/[address] you [...] Health Questionnaire-2 Score 6 06/26/2025 Comments No Intention Date Recorded No desire to become (finding) 1 Sex and Gender Information Value Date Recorded Sex Assigned at Female 01/22/2024 8:45 AM EDT Legal Sex Female 1:50 PM EDT Gender Identity Female 01/22/2024 8:45 AM EDT Sexual Orientation Straight 01/22/2024 8: 45 AM EDT Last Filed Vital Signs Vital Sign Reading [...] Mass Index 35.09 08/07/2025 3:04 PM EST Plan of Treatment Upcoming Encounters Date Type Department Care Team (Late st Contact Info) Description 09/15/2025 9:45 AM EST Office Visit [facility] [address] [place] [address] Whitney Ward MD [address] [place] [address] 10/27/2025 10:00 AM EST Office Visit [facility] [address] [place], [place] [phone] Luann Griffin OD [address] [place] [address] Health Maintenance Due Date Last Done Comments HIV Screening 1988 Disability Screening 1988 HPV Vaccines (1 - 3-dose series) 11/12/2003 Pneumococcal Vaccine: Pediatrics (0 to 5 Years) and At-Risk Patients (6 to 49) Years (1 of 2 - PCV) 11/12/2007 Mammogram 06/07/2024 03/07/2024, 03/07/2024, 02/15/2024 Diagnostic Breast Imaging 06/08/20242023, 02/15/2024 SDOH Screening 01/21/2025 01/22/2024 COVID-19 Vaccine (3 - 2024-2 6 season) 2025 05/03/2022, 04/12/2022 Influenza Vaccine (#1) 2025 06/16/2023 Pap Smear 12/01/2025 12/01/2022 Depression Monitoring 12/24/2025 06/26/2025 , 06/26/2025 Alcohol/Substance Use Screening 06/15/2026 06/15/2025 Family Planning (PISQ) 06/15/2026 06/15/2025 Tobacco Screening 08/07/2026 08/07/2025 Cervical Cancer Screening 12/02/2027 HPV/Cotest 12/02/2027 12/01/2022 Lipid Panel 04/11/2029 04/11/2024 DTaP/Tdap/Td Vaccines (2 - T d or Tdap) 04/12/2034 04/12/2024 Zoster Vaccines (1 of 2) 2038 RSV Patients and Patients Aged 60 years or older (1 - 1-dose 75+ series) 11/12/2063 Hepatitis C Screening Completed 04/13/2024 HIB Vaccines Aged Out No longer eligi ble based on patient's age to complete this topic Hepatitis A Vaccines Aged Out No long er eligible based on patient's age to complete this topic Hepatitis B Vaccines Discontinued IPV Vaccines Aged Out No longer eligi ble based on patient's age to complete this topic Meningococcal B Vaccine Aged Out No l onger eligible based on patient's age to complete this topic Meningococcal Vaccine Aged Out No real tim eligible based on patient's age to complete this topic RSV under 20 months Aged Out No longe r eligible based on patient's age to complete this topic Rotavirus Vaccines Aged Out No longer eligible based on patient's age to complete this topic Procedures Procedure Name Priority Date/Time Associated Diagnosis Comments HEMOGLOBIN A1C Routine 08/07/2025 9:25 AM EST Class 1 obesity due to excess calories without serious comorbidity with body mass index (BMI) of 34.0 to 34.9 in adult URINALYSIS, COMPLETE, WITH REFLEX TO CULTURE Routine 08/07/2025 9:25 AM EST Other chest pain BASIC METABOLIC PANEL Routine 08/07/2025 9:25 AM EST Class 1 obesity due to excess calories without serious comorbidity with body mass index (BMI) of 34.0 to 34.9 in adult XR CHEST 2 VIEWS Routine 06/15/2025 11:1 0 AM EDT Other chest pain HEPATITIS PANEL, GENERAL Routine 04/13/2024 8:30 AM EDT Preventative health care LIPID PANEL WITH REFLEX TO DIRECT LDL Routine 04/11/2024 12:30 PM EDT Galactorrhea BI US BREAST LIMITED LEFT STAT 03/07/2024 2:18 PM EDT HM PAP/HPV Routine 12/01/2022 from Last 3 Months or Most Recently Relevant to Health Maintenance Results * (ABNORMAL) Urinalysis, Complete, with Reflex to Culture (08/07/2025 9:25 AM EST) Color Urine Yellow [facility] Appearance Urine Cloudy [facility] PH 5.5 5.0 - 9.0 [facility] Glucose Urine UA Negative Negative mg/dL [facility] Urine Blood Moderate (2+)(A) Negative [facility] Specific Lyman - Urine 1.015 1.005 - 1.025 [facility] Urine Protein Negative Neg-Trace mg/dL [facility] Urine Ketones Negative Negative mg/dL [facility] Nitrite Urine Negative Negative [facility] Leukocyte Esterase Urine Negative Negative [facility] RBC Urine 3-5(A) 0 - 2 /HPF [facility] Urine WBC 0-5 0 - 5 /HPF [facility] Urine Squamous Epithelial Cell 0-2 0 - 2 /HPF [facility] Urine Bacteria None Seen None Seen [facility] Hyaline Casts, Urine 0-2 0 - 2 /LPF [facility] Urine Urine specimen obtained by clean catch procedure / Unknown 08/07/2025 9:25 AM EST 08/07/2025 11:18 AM EST Narrative [facility] - 08/07/2025 1:06 PM EST Urine, Clean Catch us Whitney Ward MD LAB URINE ORDERABLES Fin al Result Performing Organization Address [facility] Co de Phone Number [facility] [address] [place] [address] [phone] * Hemoglobin A1c (08/07/2025 9:25 AM EST) Hemoglobin A1c 5.4 <6.0 % [facility] Comment:Hemoglobin A1C Refer ence Range Adults: 4.8 - 6.0 % Non diabetic: < 6.0 % Goal: < 7.0 %Additional Action Suggested: > 8.0 %Note: Hemoglobin A1c results are invalid for patients with abnormal amounts of HbF. Blood transfusions may impact the HbA1c concentration in the patient sample. Estimated Average Glucose 108 mg/dL [facility] Comment:eAG = Estimated ave rage glucose which is %A1C expressed asaverage glucose, using the formula of the [id number] Glucose study (ADAG), Diabetes Care, Vol.31,#8,Mar. 2007 Blood Venous blood specimen / Unknown 08/07/2025 9:25 AM EST 08/07/2025 11:04 AM EST Whitney Ward MD LAB BLOOD ORDERABLES Fin al Result Performing Organization Address [facility] Co de Phone Number [facility] [address] [place] [phone] * (ABNORMAL) Basic Metabolic Panel (08/07/2025 9:25 AM EST) Sodium 140 135 - 145 mmol/L [facility] Potassium 3.8 3.3 - 5.1 mmol/L [facility] Chloride 108 96 - 108 mmol/L [facility] Carbon Dioxide 27 22 - 29 mmol/L [facility] Anion Gap 9(L) 12 - 20 [facility] Urea Nitrogen (BUN) 8(L) 9 - 16 mg/dL [facility] Creatinine, Serum 0.75 0.5 - 1.4 mg/dL [facility] Estimated Glomerular Filt Rate >60 [facility] Comment:Chronic Kidney Disea se: Estimated GFR < 60 mL/min/[id number] Kidney Disease: Estimated GFR < 15 mL/min/1.73m2 Glucose 82 60 - 115 mg/dL [facility] Calcium 9.4 8.4 - 10.2 mg/dL [facility] Blood Venous blood specimen / Unknown 08/07/2025 9:25 AM EST 08/07/2025 11:04 AM EST us Whitney Ward MD LAB BLOOD ORDERABLES Fin al Result Performing Organization Address City/State/[facility] Co de Phone Number [facility] [address] [place] [address] [phone] * XR Chest 2 Views (06/15/2025 11:10 AM EDT) Anatomical Region Laterality Modality Chest Radiographic Holly ging 06/15/2025 11:1 0 AM EDT Narrative 06/15/2025 11:04 AM EDT [facility] [address] [place] [address] XRay Report Signed Patient: Beatriz Li MR#: [id number] 200 : 1990 Acct:[id number] Age/Sex: 34 / F ADM Date: 06/15/25 Loc: HO.HHCX Attending Dr: Whitney Ward MD Ordering Physician: Whitney Ward MD Date of Service: 06/15/25 Procedure(s): XR chest 2V Accession Number(s): [id number] cc: Whitney Ward MD Reason for Exam: pleuritic CP EXAMINATION: XR CHEST CLINICAL INFORMATION: pleuritic CP COMPARISON: None available. TECHNIQUE: PA and lateral views FINDINGS: No consolidation, pleural effusion or pneumothorax. Cardiomediastinal silhouette size is normal. Mild S-shaped curvature of the thoracolumbar spine. Bilateral breast implants. XR/XR chest 2V IMPRESSION: No acute airspace disease. Mild scoliosis, thoracolumbar spine. Electronically signed by: Winston Blanton MD 06/15/2025 11:01 AM EDT RP Dictated By: Winston Laboy MD Signed By: <Electronically signed by Winston Maradiaga MD in OV> 06/15/25 1101 DD/ 1110 TD/TT: 06/15/25 1058 Auto Design Checker: Procedure Note Donotuseinterpreter, Image - 06/15/[address] [address] XRay Report Signed Patient: Beatriz Li#: [id number] 200 : 1990Acct:[id number] Age/Sex: 34 / FADM Date: 06/15/25 Loc: HO.HHCX Attending Dr: Whitney Ward MD Ordering Physician: Whitney Ward MD Date of Service: 06/15/25 Procedure(s): XR chest 2V Accession Number(s): [id number] cc: Whitney Ward MD Reason for Exam: pleuritic CP EXAMINATION: XR CHEST CLINICAL INFORMATION: pleuritic CP COMPARISON: None available. TECHNIQUE: PA and lateral views FINDINGS: No consolidation, pleural effusion or pneumothorax. Cardiomediastinal silhouette size is normal. Mild S-shaped curvature of the thoracolumbar spine. Bilateral breast implants. XR/XR chest 2V IMPRESSION: No acute airspace disease. Mild scoliosis, thoracolumbar spine. Electronically signed by: Winston Blanton MD 06/15/2025 11:01 AM EDT RP Dictated By: Winston Laboy MD Signed By: <Electronically signed by Winston Maradiaga MDin OV> 06/15/25 1101 DD/ 1110 TD/TT: 06/15/25 1058 Auto Design Checker: us Whitney Ward MD IMG XR PROCEDURES Edited Result - Final * Hepatitis Panel, General (04/13/2024 8:30 AM EDT) Hepatitis A IgM Nonreactive Nonreactive [facility] Comment:IgM antibodies to MARTEL V not detected; does not exclude earlyacute or recovered HAV infection. ~Hepatitis B Surface Antibody REACTIVE Nonreactive [facility] Comment:REACTIVE: > 11.99 mI U/mL Hepatitis B Core Antibody Nonreactive Nonreactive [facility] Hepatitis C Antibody Nonreactive Nonreactive [facility] Comment:Antibodies to HCV no t detected; does not exclude early acuteHCV infection. Hepatitis B Surface Ag Negative Negative [facility] Blood 04/13/2024 8:30 AM EDT 04/13/2024 11:36 AM EDT us Whitney Ward MD LAB BLOOD ORDERABLES Fin al Result [facility] [address] [place] [phone] * Lipid Panel with Reflex to Direct LDL (04/11/2024 12:30 PM EDT) Triglycerides 70 <150 mg/dL [facility] Comment:Desirable Triglyceri de: less than 150 mg/dLBorderline High Triglyceride 150-199 mg/dLHigh Triglyceride: 200-499 mg/dLVery High Triglyceride: greater than or equal to 5OO mg/dL Cholesterol 139 <200 mg/dL [facility] Comment:Desirable Cholestero l: less than 200 mg/dLBorderline High Cholesterol: 200-239 mg/dLHigh Cholesterol: greater than 239 mg/dL LDL Cholesterol Calculated 68 <100 mg/dL [facility] Comment:Desirable LDL: less than 100 mg/dLNear Optimal/Above Optimal LDL: 110- 129 mg/dLBorderline High LDL: 130-159 mg/dLHigh LDL: 160-189 mg/dLVery High LDL: greater than or equal to 190 mg/dL HDL Cholesterol 57 >40 mg/dL [facility] Comment:Desirable HDL: great er than 40 mg/dL Note: This HDL assay may give artificially low results in patients with liver disease. Blood 04/11/2024 12:3 0 PM EDT 04/11/2024 1:13 PM EDT us Whitney Ward MD LAB BLOOD ORDERABLES Fin al Result Performing Organization Address City/State/[facility] Co de Phone Number [facility] [address] [place] [phone] * BI US Breast Limited Left (03/07/2024 2:18 PM EDT) Anatomical Region Laterality Modality Breast Left Ultrasound 03/07/2024 2:18 PM EDT Narrative 03/07/2024 5:01 PM EDT [facility] [address] [place] [address] Ultrasound Report Signed Patient: Beatriz Li MR#: [id number] 200 : 1990 Acct:[id number] Age/Sex: 33 / F ADM Date: 03/07/24 Loc: HO.MAMMO Attending Dr: Svetlana Kay MD Ordering Physician: Svetlana Abreu MD Date of Service: 03/07/24 Procedure(s): US breast LT limited mamm only Accession Number(s): [id number] cc: Svetlana Abreu MD EXAMINATION: MM DIAGNOSTIC DIGITAL BREAST TOMOSYNTHESIS, BILATERAL US BREAST LIMITED, LEFT CLINICAL INFORMATION: 33-year-old female, Yellowish left nipple discharge x1 year. Recent breast augmentation/implant surgery November 2022. Patient also complaining palpable focus far left breast medial inferior aspect near sternal wall. Recent MRI examination 02/15/2024, Second Look ultrasound for 2 possible abnormalities (1 representing palpable abnormality) and a 3 mm 6:00 axis left enhancing focus 3 cm from the nipple just underneath the skin, seen on that examination left breast. COMPARISON: Mammography: None. MRI breasts 02/15/2024. TECHNIQUE: Digital mammography is performed in craniocaudal and mediolateral oblique views. Digital breast tomosynthesis is performed in implant-displaced craniocaudal and implant-displaced mediolateral oblique views. Synthesized 2D images are generated from the tomosynthesis. Computer-aided detection (CAD) is performed for this exam. FINDINGS: There are scattered areas of fibroglandular density (ACR BI-RADS breast composition Category b). The implant contours are unremarkable. There are no significant masses, abnormal calcifications, or other abnormalities. The small 3 mm enhancing focus at the 6:00 axis left breast shows no suspicious abnormality on mammography. This is in a region of scarring from breast augmentation, and most likely represents scar tissue. The palpable focus in the far medial inferior left breast near the sternum is too far posteromedial to be imaged on mammography. We will investigate both these regions with ultrasound. ULTRASOUND: CLINICAL INFORMATION: As above. Evaluating palpable focus left breast far posteromedial and inferior, and evaluating small enhancing focus 6:00 axis 3 cm from the nipple, likely scar tissue. COMPARISON: None. Correlation with MRI breasts 01/26/2024. TECHNIQUE: Targeted sonographic evaluation was performed using a high frequency linear transducer. Selected archived documentation. FINDINGS: LEFT BREAST: -There is a mixture of fatty and fibroglandular tissue. No suspicious mass is seen. There is no pathologic acoustic shadowing. There is no ultrasonographic correlate to the 6:00 axis small focus of enhancement. In the region of far posteromedial palpable concern, 8:00 axis along the sternal border, there is an anechoic oval lesions that is slightly taller than wide, mildly irregular margins, good through transmission, with no internal color Doppler flow, measuring 5 x 6 x 5 mm. There is some surrounding echogenic changes to the subcutaneous fat in this region, making this most likely a region of fat necrosis. In addition this is also in the region of scarring, and is likely postsurgical in nature. US/US breast LT limited mamm only IMPRESSION: -There are no findings in either breast suspicious for malignancy. There is no implant abnormality in either breast. -Focus of enhancement on MRI LEFT breast at the 6:00 axis, 3 cm from the nipple most likely correlates to scar tissue in this region. There is no suspicious associated finding on sonography. To be cautious, 3 MONTH FOLLOW-UP left diagnostic mammogram recommended to ensure stability mammographically (standard CC and MLO implant displaced views). -Focus of palpable concern at the sternal border 8:00 axis far posteromedial also lies in a region of scarring, and is most likely a focus of evolving fat necrosis. -To be cautious, 3 MONTH FOLLOW-UP of the 8 o'clock axis abnormality, likely fat necrosis, is recommended with targeted LEFT breast ultrasound to assess for expected evolution. -Findings were discussed with the patient. OVERALL ASSESSMENT: Mammography: BI-RADS 3 - Probably benign finding(s) - 6 month follow-up suggested Ultrasound: BI-RADS 3 - Probably benign finding(s) - 6 month follow-up suggested RECOMMENDATION: 1-3 Months F/U This patient's information was entered into a reminder system with a target due date for their next mammogram. Dictated By: Paul Lynn MD Signed By: <Electronically signed by Paul Lynn MD in OV> 03/07/24 1658 DD/ 1418 TD/TT: Auto Design Checker: Procedure Note Donotuseinterpreter, Image - 03/07/2024 [facility] [address] [place] [address] Ultrasound Report Signed Patient: Beatriz Li [facility]#: [id number] 200 : 1990Acct:[id number] Age/Sex: 33 / FADM Date: 03/07/24 Loc: HO.MAMMO Attending Dr: Svetlana Kay MD Ordering Physician: Svetlana Abreu MD Date of Service: 03/07/24 Procedure(s): US breast LT limited mamm only Accession Number(s): [id number] cc: Svetlana Abreu MD EXAMINATION: MM DIAGNOSTIC DIGITAL BREAST TOMOSYNTHESIS, BILATERAL US BREAST LIMITED, LEFT CLINICAL INFORMATION: 33-year-old female, Yellowish left nipple discharge x1 year. Recent breast augmentation/implant surgery November 2022. Patient also complaining palpable focus far left breast medial inferior aspect near sternal wall. Recent MRI examination 02/15/2024, Second Look ultrasound for 2 possible abnormalities (1 representing palpable abnormality) and a 3 mm 6:00 axis left enhancing focus 3 cm from the nipple just underneath the skin, seen on that examination left breast. COMPARISON: Mammography: None. MRI breasts 02/15/2024. TECHNIQUE: Digital mammography is performed in craniocaudal and mediolateral oblique views. Digital breast tomosynthesis is performed in implant-displaced craniocaudal and implant-displaced mediolateral oblique views. Synthesized 2D images are generated from the tomosynthesis. Computer-aided detection (CAD) is performed for this exam. FINDINGS: There are scattered areas of fibroglandular density (ACR BI-RADS breast composition Category b). The implant contours are unremarkable. There are no significant masses, abnormal calcifications, or other abnormalities. The small 3 mm enhancing focus at the 6:00 axis left breast shows no suspicious abnormality on mammography. This is in a region of scarring from breast augmentation, and most likely represents scar tissue. The palpable focus in the far medial inferior left breast near the sternum is too far posteromedial to be imaged on mammography. We will investigate both these regions with ultrasound. ULTRASOUND: CLINICAL INFORMATION: As above. Evaluating palpable focus left breast far posteromedial and inferior, and evaluating small enhancing focus 6:00 axis 3 cm from the nipple, likely scar tissue. COMPARISON: None. Correlation with MRI breasts 01/26/2024. TECHNIQUE: Targeted sonographic evaluation was performed using a high frequency linear transducer. Selected archived documentation. FINDINGS: LEFT BREAST: -There is a mixture of fatty and fibroglandular tissue. No suspicious mass is seen. There is no pathologic acoustic shadowing. There is no ultrasonographic correlate to the 6:00 axis small focus of enhancement. In the region of far posteromedial palpable concern, 8:00 axis along the sternal border, there is an anechoic oval lesions that is slightly taller than wide, mildly irregular margins, good through transmission, with no internal color Doppler flow, measuring 5 x 6 x 5 mm. There is some surrounding echogenic changes to the subcutaneous fat in this region, making this most likely a region of fat necrosis. In addition this is also in the region of scarring, and is likely postsurgical in nature. US/US breast LT limited mamm only IMPRESSION: -There are no findings in either breast suspicious for malignancy. There is no implant abnormality in either breast. -Focus of enhancement on MRI LEFT breast at the 6:00 axis, 3 cm from the nipple most likely correlates to scar tissue in this region. There is no suspicious associated finding on sonography. To be cautious, 3 MONTH FOLLOW-UP left diagnostic mammogram recommended to ensure stability mammographically (standard CC and MLO implant displaced views). -Focus of palpable concern at the sternal border 8:00 axis far posteromedial also lies in a region of scarring, and is most likely a focus of evolving fat necrosis. -To be cautious, 3 MONTH FOLLOW-UP of the 8 o'clock axis abnormality, likely fat necrosis, is recommended with targeted LEFT breast ultrasound to assess for expected evolution. -Findings were discussed with the patient. OVERALL ASSESSMENT: Mammography: BI-RADS 3 - Probably benign finding(s) - 6 month follow-up suggested Ultrasound: BI-RADS 3 - Probably benign finding(s) - 6 month follow-up suggested RECOMMENDATION: 1-3 Months F/U This patient's information was entered into a reminder system with a target due date for their next mammogram. Dictated By: Paul Lynn MD Signed By: <Electronically signed by Paul Lynn MD in OV> 03/07/24 1658 DD/ 1418 TD/TT: Auto Design Checker: us Svetlana Kay MD IMG US PROCEDURES Final Result * HM PAP/HPV (12/01/2022) Pap Smear 1. NILM 1. NILM HPV Not Detected Undetected, Indeterminat e, Quantitative , Not Detected us Whitney Ward MD HEALTH MAINTENANCE Final Result from Last 3 Months or Most Recently Relevant to Health Maintenance Insurance * Guarantor: Latisha Li Account Type Relation to Patient Date of Phone Billing Address Personal/Family Self [address] [place] [address] [employer] C3 HSN PARTIAL Care Teams Grain Elevator Man Relationship Specialty Start Date End Date Whitney Ward MD [address] [place] [phone] PCP - General Internal Medicine 04/11/24
--- OUTSIDE RECORDS SUMMARY | 2025-08-08 09:41 | XMS_ITS | Encounter Summary ---
Author Organization [email or web address] Address [address] [facility] [address] [place] [address] Care Team Providers Care Toolmaker Helper Name Role Phone Whitney Ward MD Primary Care Provider + Reason for Visit * Reason Onset Date Comments Call Back Request 02/19/2024 Encounter Details Date Type Department Care Team ([facility] st Contact Info) Description 02/19/2024 Telephone [facility] [address] [place] [address] Svetlana Abreu MD [address] [place] [address] Call Back Request Social History Tobacco Use Types Packs/Day Years Used Date Smoking Tobacco: Never Assessed Depression Answer Date Recorded Patient Health Questionnaire-9 Score 12 02/16/2024 Patient Health Questionnaire-9 Score 12 02/16/2024 Last PHQ-9: Questionnaire Data Not on file 0 02/16/2024 Housing Stability Answer Date Recorded What is [...] Date Recorded Patient Health Questionnaire-2 Score 6 02/16/2024 Comments Unknown Sex and Gender Information Value Date Recorded Sex Assigned at Female 01/22/2024 8:45 AM EDT Legal Sex Female 1:50 PM EDT Gender Identity Female 01/22/2024 8:45 AM EDT Sexual Orientation Straight 01/22/2024 8: 45 AM EDT documented as of this encounter Miscellaneous Notes * Telephone Encounter - Siomara Donaldson RN - 02/23/2024 10:51 AM EDT [facility] checked for breast MR results. Per report pt has BI-RADS 4 in the left breast. This report was forwarded to [facility] and PCP * Telephone Encounter - Toshia Wise RN - 02/22/2024 8:44 AM EDT TC returned to Kenia at [facility] regarding message below. Per Kenia, spoke to a man as pt reported having prior mammo but do not have and reports Radiologist is recommending bilateraldx Mammo with left breast with MR direct second look ultrasound as they don't have original priors or no notations where may have had done. RN read back order recommendation to Kenia and Kenia verified. RN informed Kenia, will forward message to ordering provider. Kenia verbalized understanding. No further questions or concerns expressed at this time. Kenia/Lalo to F/U as needed. RN will forward to Dr. Pete to review and advise team nurses. Tc from Shante with [facility] requesting a call back in regards to MRI breast results. Please contact shante at [phone] ext [phone] * Telephone Encounter - Imani Faith - 02/19/2024 4:18 PM EDT Tc from Shante with [facility] requesting a call back in regards to MRI breast results. Please contact shante at [phone] ext [phone] documented in this encounter Plan of Treatment Upcoming Encounters Date Type Department Care Team (Late st Contact Info) Description 09/15/2025 9:45 AM EST Office Visit [facility] [address] [place] [address] Whitney Ward MD [address] [place] [address] 10/27/2025 10:00 AM EST Office Visit [facility] [address] [place] [address] TarLuann paredes, OD [address] [place] [address] documented as of this encounter Visit Diagnoses Not on filedocumented in this encounter Additional Health Concerns Assessment Noted Time PHQ-9 Depression Total Score: 12 024 11:17 AM EDT documented as of this encounter Care Teams Toolmaker Helper Relationship Specialty Start Date End Date Whitney Ward MD [address] [place] [address] PCP - General Internal Medicine 04/11/24 documented as of this encounter
--- OUTSIDE RECORDS SUMMARY | 2025-08-08 09:41 | XMS_ITS | Encounter Summary ---
Author Organization [employer] Address [address] [place] [address] Care Team Providers Care Check Airman Name Role Phone Whitney Ward MD Primary Care Provider + Reason for Visit * Reason Onset Date Comments Created in error 04/11/2024 Encounter Details Date Type Department Care Team ([facility] Contact Info) Description 04/11/2024 Telephone [facility] MEDICINE [address] [place] [address] Whitney Ward MD [address] [place] [address] Created in error Social History Tobacco Use Types Packs/Day Years Used Date Smoking Tobacco: Some Days Cigarettes Smokeless Tobacco: Never Alcohol Use Standard Drinks/Week Comments Not Currently 2 (1 standard drink = 0.6 oz pure alcohol) Currently drinks wine every other day Depression Answer Date Recorded Patient Health Questionnaire-9 [...] Patient Health Questionnaire-2 Score 6 02/16/2024 Comments No Sex and Gender Information Value [...] Description 09/15/2025 9:45 AM EST Office Visit [facility] MED[facility]INE [address] [place] [address] Whitney Ward MD [address] [place] [address] 10/27/2025 10:00 AM EST Office Visit [facility] OPTOMETRY [address] [place] [address] Luann Griffin, OD [address] [place] [address] documented as of this encounter Visit Diagnoses Not on filedocumented in this encounter Additional Health Concerns Assessment Noted Time PHQ-9 Depression Total Score: 12 024 11:17 AM EDT documented as of this encounter Care Teams Check Airman Relationship Specialty Start Date End Date Whitney Ward MD [address] [place] [address] PCP - General Internal Medicine 04/11/24 documented as of this encounter
--- OUTSIDE RECORDS SUMMARY | 2025-08-08 09:41 | XMS_ITS | Encounter Summary ---
Author Organization [employer] [facility] Address [address] [place] [address] Care Team Providers Care Custodial Officer Name Role Phone Whitney Ward MD Primary Care Provider + Reason for Visit * Reason Onset Date Comments New Patient 04/23/2023 Encounter Details Date Type Department Care Team (Late st Contact Info) Description 04/23/2023 Telephone [facility] MEDICINE [address] [place] [phone] Román Dash MD [address] [place] [phone] New Patient Social History Tobacco Use Types Packs/Day Years Used Date Smoking Tobacco: Never Assessed Comments Unknown Sex and Gender Information Value Date Recorded Sex Assigned at Female 01/22/2024 8:45 AM EDT Legal Sex Female 1:50 PM EDT Gender Identity Female 01/22/2024 8:45 AM EDT Sexual Orientation Straight 01/22/2024 8: 45 AM EDT documented as of this encounter Miscellaneous Notes * Telephone Encounter - Alex Hernandez - 04/23/2023 5:36 PM EDT Pt has been transfer over to wait list for [employer]. EFFECTIVE SINCE 04/23/2023 documented in this encounter Plan of Treatment Upcoming Encounters Date Type Department Care Team (Late st Contact Info) Description 09/15/2025 9:45 AM EST Office Visit [facility] MEDICINE [address] [place] [phone] Whitney Ward MD [address] [place] [address] 10/27/2025 10:00 AM EST Office Visit [facility] OPTOMETRY [address] [place], [place] [phone] Luann Griffin, OD [address] [place], [place] [phone] documented as of this encounter Visit Diagnoses Not on filedocumented in this encounter Care Teams Custodial Officer Relationship Specialty Start Date End Date Whitney Ward MD [address] [place] [address] PCP - General Internal Medicine 04/11/24 documented as of this encounter
--- OUTSIDE RECORDS SUMMARY | 2025-08-08 09:41 | XMS_ITS | Encounter Summary ---
Author Organization [employer] Address [address] [place] [address] Care Team Providers Care Logistics Analyst Name Role Phone Whitney Ward MD Primary Care Provider + Reason for Visit * Reason Onset Date Comments Call Back Request 03/18/2024 Encounter Details Date Type Department Care Team ([facility] st Contact Info) Description 03/18/[address] [facility] MEDICINE [address] [place] [address] Román Dash MD [address] [place] [address] Call Back Request Social History Tobacco Use [...] encounter Miscellaneous Notes * Telephone Encounter - Ibrahima Bunch - 03/18/2024 2:51 PM EDT Tc from patient calling to request the reason on why has been referred to a [facility] Surgeons Breast Surgery states was not informed why only received a date documented in this encounter Plan of Treatment Upcoming Encounters Date Type Department Care Team (Late st Contact Info) Description 09/15/2025 9:45 AM EST Office Visit [facility] MEDICINE [address] [place] [address] Whitney Ward MD [address] [place] [address] 10/27/2025 10:00 AM EST Office Visit [facility] OPTOMETRY [address] [place] [address] Luann Griffin, OD [address] [place] [address] documented as of this encounter Visit Diagnoses Not on filedocumented in this encounter Additional Health Concerns Assessment Noted Time PHQ-9 Depression Total Score: 12 024 11:17 AM EDT documented as of this encounter Care Teams Logistics Analyst Relationship Specialty Start Date End Date Whitney Ward MD [address] [place] [address] PCP - General Internal Medicine 04/11/24 documented as of this encounter
== END 2025-08-08 08:51 | disposition home or self-care (01) ==
LOC: HO.US 08:50
PROVIDERS: PCP Internal Medicine; Visit Provider Internal Medicine
DX: R22.41 Localized swelling, mass and lump, right lower limb (principal)
CPT/HCPCS: 93971

== ENCOUNTER → 2025-08-08 09:06 | Outpatient (BNV) | payer MEDICAID, SELFPAY | PROVIDERS: PCP Internal Medicine; Visit Provider Radiology Diagnostic Radiology | DX: R22.41 Localized swelling, mass and lump, right lower limb (principal) | CPT/HCPCS: 93971 ==